=== PATIENT | male | born 1975 | race Caucasian/White ===

== ENCOUNTER 2017-03-04 19:40 | Emergency (ER) | payer SELFPAY ==
[2017-03-04 19:40] VITALS: BMI 28.1
[2017-03-04 20:07] VITALS: BP 121/84; PULSE 96; RESP 18; TEMP 97.9; O2SAT 96
[2017-03-04 22:15] LABS: RBC URINE 5 /hpf (0-3); URINE BACTERIA OCC (<OCC); URINE BILIRUBIN NEGATIVE (NEGATIVE); URINE BLOOD TRACE (NEGATIVE); URINE COLOR Yellow (YELLOW); URINE GLUCOSE (UA) NORMAL (Normal); URINE KETONE NEGATIVE (NEGATIVE); URINE LEUKOCYTE ESTERASE NEG Leu/uL (Negative); URINE PROTEIN NEGATIVE (NEGATIVE); URINE UROBILINOGEN NORMAL mg/dL (0.2-1.0); WBC URINE < 1 /hpf (0-5)
--- NOTE | 2017-03-04 22:41 | C.PDOC ---
History Of Present Illness Patient is a 41 y/o male who presents to the ED with a complaint of lower back pain for the past week. Patient states pain radiates to bilateral inguinal area , and worsens with movement. Patient denies nausea, vomiting, diarrhea, or UTI symptoms; denies fever, or trauma. No bladder or bowel incontinence. Patient has no other complaints at this time. Time Seen by Provider: 03/04/17 21:00 Chief Complaint (Nursing): Back Pain History Per: Patient History/Exam Limitations: no limitations Onset/Duration Of Symptoms: Days (symptoms began one week ago) Current Symptoms Are (Timing): Still Present Quality Of Discomfort: Other (radiates to lowe abdomen and inguinal area) Associated Symptoms: denies: Incontinence, New Weakness, New Numbness Exacerbating Factor(s): Movement Recent travel outside of the [place]: No Past Medical History Reviewed: Historical Data, Nursing Documentation, Vital Signs Vital Signs: Last Vital Signs Temp 97.9 F 03/04/17 20:06 Pulse 96 H 03/04/17 20:06 Resp 18 03/04/17 20:06 BP 121/84 03/04/17 20:06 Pulse Ox 96 03/05/17 05:33 - Medical History PMH: Asthma, Gastritis, HTN (not on meds) Surgical History: No Surg Hx Family History: States: Unknown Family Hx - Social History Hx Tobacco Use: No Hx Alcohol Use: No Hx Substance Use: No - Immunization History Hx Tetanus Toxoid Vaccination: No Hx Influenza Vaccination: No Hx Pneumococcal Vaccination: No Review Of Systems Constitutional: Negative for: Fever Gastrointestinal: Positive for: Other (no incontinence of bowel). Negative for : Nausea, Vomiting, Diarrhea Genitourinary: Negative for: Dysuria, Incontinence, Hematuria Musculoskeletal: Positive for: Back Pain (radiates to lower abdomen and inguinal areas) Neurological: Negative for: Weakness, Numbness Physical Exam - Physical Exam Appears: Well, Non-toxic, No Acute Distress Skin: Normal Color Eye(s): bilateral: Normal Inspection Oral Mucosa: Moist Gastrointestinal/Abdominal: Soft, No Tenderness (slight tenderness to R inguinal area), No Hernia Back: Normal Inspection, No CVA Tenderness, No Vertebral Tenderness, No Decreased ROM, Paraspinal Tenderness (bilateral paralumbar tenderness), No Straight Leg Raising Male Genital: No Testicular Tenderness, No Testicular Swelling, Inguinal Tenderness (slight tenderness to right inguinal area), No Scrotal Swelling, No Circumcised Neurological/Psych: Oriented x3, Normal Speech Gait: Steady ED Course And Treatment O2 Sat by Pulse Oximetry: 96 (room air) Pulse Ox Interpretation: Normal - Other Rad LS Spine X-Ray: Interpreted by Me, Viewed By Me Interpretation: no fractions, no findings. Progress Note: LS Spine XRay and UA ordered; results negative. Pt refused pain meds. Plan d/w pt and pt does agree with plan. Patient advised to follow up with PCP. Return precautions were discussed and understood Disposition Counseled Patient/Family Regarding: Studies Performed, Diagnosis, Need For Followup, Rx Given - Disposition Referrals: [facility] [Outside] Disposition: HOME/ ROUTINE Disposition Time: 22:38 Condition: STABLE Additional Instructions: Please follow up in clinic Take pain meds as directed Return to ER if worse Prescriptions: Cyclobenzaprine [Cyclobenzaprine HCl] 10 mg PO HS #10 tab Ibuprofen [Motrin] 600 mg PO Q6H #30 tab Instructions: Acute Low Back Pain (ED) Forms: [employer] ([place]orese) - Clinical Impression Clinical Impression: Low back pain - Scribe Statement The provider has reviewed the documentation as recorded by the Scribe Trini Griggs All medical record entries made by the Scribe were at my direction and personally dictated by me. I have reviewed the chart and agree that the record accurately reflects my personal performance of the history, physical exam, medical decision making, and the department course for this patient. I have also personally directed, reviewed, and agree with the discharge instructions and disposition.
--- NOTE | 2017-03-05 07:54 | RAD ---
PROCEDURE: Radiographs of the Lumbar Spine. HISTORY: back pain COMPARISON: No prior. FINDINGS: BONES: Normal alignment. No listhesis. No fracture. Superior L5 endplate Schmorl's node indentation DISC SPACES: Unremarkable. OTHER FINDINGS: None. IMPRESSION: L5 Schmorl's node indentation. Otherwise unremarkable
== END 2017-03-04 22:50 | disposition home or self-care (01) ==
LOC: C.ER 19:40
DX: M54.5 Low back pain (principal); I10 Essential (primary) hypertension

== ENCOUNTER 2017-03-09 22:20 | Emergency (ER) | payer SELFPAY ==
[2017-03-09 22:20] VITALS: BMI 28.1
[2017-03-09 22:30] VITALS: BP 136/86; PULSE 101; RESP 16; TEMP 98; O2SAT 98
--- NOTE | 2017-03-09 22:57 | C.PDOC ---
History Of Present Illness 41 yo male come in for evaluation of lower abdominal pain gradually developed for past 2 weeks. Pt reports, " was seen here week ago due to lower back pain and now pain shifted to lower abdomen", (+) discomfort on urination. Pt sts, " had similar sx in past when i was here and diagnosed with prostatitis then". Otherwise, pt denies fever, chills, sore throat, cough, N/V/D, hematuria, penile discharges or lesion, denies testicular pain or swelling. Ambulate to ED for evaluation, not in any apparent distress. Time Seen by Provider: 03/09/17 22:39 Chief Complaint (Nursing): Male Genitourinary History Per: Patient Past Medical History Reviewed: Historical Data, Nursing Documentation, Vital Signs Vital Signs: Last Vital Signs Temp 98.0 F 03/09/17 22:27 Pulse 101 H 03/09/17 22:27 Resp 16 03/09/17 22:27 BP 136/86 03/09/17 22:27 Pulse Ox 98 03/09/17 23:12 - Medical History PMH: Asthma, Gastritis, HTN (not on meds) Family History: States: No Known Family Hx - Social History Hx Tobacco Use: No Hx Alcohol Use: No Hx Substance Use: No - Immunization History Hx Tetanus Toxoid Vaccination: No Hx Influenza Vaccination: No Hx Pneumococcal Vaccination: No Review Of Systems Except As Marked, All Systems Reviewed And Found Negative. Constitutional: Negative for: Fever, Chills ENT: Negative for: Throat Pain, Throat Swelling Cardiovascular: Negative for: Chest Pain Respiratory: Negative for: Cough, Shortness of Breath, Wheezing Gastrointestinal: Positive for: Abdominal Pain. Negative for: Nausea, Vomiting , Diarrhea Genitourinary: Positive for: Dysuria. Negative for: Frequency, Incontinence, Hematuria, Penile Discharge, Rash, Penile Pain Musculoskeletal: Positive for: Back Pain. Negative for: Neck Pain Skin: Negative for: Rash Neurological: Negative for: Weakness, Numbness, Altered Mental Status, Dizziness Physical Exam - Physical Exam Appears: Well, Non-toxic, No Acute Distress Skin: Normal Color, Warm, No Rash Head: Normacephalic Eye(s): bilateral: PERRL Nose: No Discharge Oral Mucosa: Moist, No Drooling Throat: No Erythema Neck: Supple Cardiovascular: Rhythm Regular Respiratory: No Decreased Breath Sounds, No Accessory Muscle Use, No Stridor, No Wheezing Gastrointestinal/Abdominal: Soft, Tenderness (mild suprapubic), No Distention, No Guarding, No Rebound Back: No CVA Tenderness, No Vertebral Tenderness Male Genital: Other (refused) Extremity: No Tenderness, No Pedal Edema, No Deformity, No Swelling Neurological/Psych: Oriented x3, Normal Speech, Normal Motor, Normal Sensation, Normal Reflexes ED Course And Treatment O2 Sat by Pulse Oximetry: 98 - CT Scan/US CT abd/pelvis Other Rad Studies (CT/US): Radiology Report Reviewed CT/US Interpretation: EXAM: CT Abdomen and Pelvis Without Intravenous Contrast. CLINICAL HISTORY: 41 years old, male; Pain; Abdominal pain; Patient HX: 01-27-14 us abd; Additional info: Flank pain. TECHNIQUE: Axial computed tomography images of the abdomen and pelvis without intravenous contrast. All CT. scans at this facility use one or more dose reduction techniques, viz.: automated exposure control;. ma/kV adjustment per patient size (including targeted exams where dose is matched to indication; i.e. head); or iterative reconstruction technique. Coronal and sagittal reformatted images were created and reviewed. COMPARISON: US - ABDOMEN LIMITED 01/27/2014 2:25:58 AM. FINDINGS : Lower thorax: There is minimal bibasilar atelectasis. Tiny hiatal hernia. ABDOMEN: Liver: There is a diffuse decrease in hepatic parenchymal density, consistent with fatty infiltration. There are no focal liver lesions present. Gallbladder and bile ducts: The gallbladder is contracted but otherwise normal. No calcified stones. No ductal dilation. Pancreas: The pancreas is normal. No ductal dilation. Spleen: The spleen is normal. Adrenals: The adrenal glands are normal. Kidneys and ureters: The kidneys are normal. No obstructing stones. No hydronephrosis. Stomach and bowel: The stomach is normal. There is mild colonic constipation. There is no. evidence of intestinal obstruction. No mucosal thickening. Appendix: A normal appendix is identified. PELVIS: Bladder: Bladder is decompressed. No stones. Reproductive: The prostate gland and seminal vesicles are normal. ABDOMEN and PELVIS: Intraperitoneal space: There is no evidence of free intraperitoneal fluid. There is no free. intraperitoneal air. Bones/joints: No acute fracture. No dislocation. Soft tissues: Unremarkable. Vasculature: The aorta is normal. No abdominal aortic aneurysm. Lymph nodes: There is no evidence of lymphadenopathy. IMPRESSION: No acute findings. Thank you for allowing us to participate in the care of your patient. Dictated and Authenticated by: Satnam Howe M Progress Note: On re-evaluaion, pt is afebrile, hemodynamicaly stable. Non- toxic. Tolerate Po well in ED. ENT: no acute findings. Abd: benign, (-) guarding, (-) rebound, (-) localized tenderness. Back: (-) CVA tenderness. Neuorlogicaly intact. UA results review and appears normal. Imaging review, no findings of kidney stones. Pt ahs clinical findings c/w dysuria r/o urethritis, STD. Ucx, GS probe-pending. Pt request STD tx now. Pt advised on safe sex, encourage to get partner(s) to be evaluated and tx as need. Follow up with PMD, urology in 2-3 days for re-eavl. return if any new changes. Disposition Counseled Patient/Family Regarding: Studies Performed, Diagnosis, Need For Followup, Rx Given - Disposition Referrals: [facility] [Outside] Jacob Jiménez MD [Staff Provider] - Disposition: HOME/ ROUTINE Disposition Time: 00:07 Condition: STABLE Additional Instructions: Take medication as prescribed Practice safe sex, Consider sexual protection Follow up with PMD, Urology in 2-3 days for re-evaluation. Return to ED if any worsening or new changes. Prescriptions: Doxycycline Hyclate [Doryx] 100 mg PO BID #14 cap Instructions: Nonspecific Urethritis in Men (ED), Safe Sex (ED) Forms: [employer] (Chinese) Print Language: UZBEK - Clinical Impression Clinical Impression: Urethritis
[2017-03-09 23:07] LABS: RBC URINE 2 /hpf (0-3); URINE BILIRUBIN NEGATIVE (NEGATIVE); URINE COLOR Yellow (YELLOW); URINE GLUCOSE (UA) NORMAL (Normal); URINE KETONE NEGATIVE (NEGATIVE); URINE LEUKOCYTE ESTERASE NEG Leu/uL (Negative); URINE PROTEIN NEGATIVE (NEGATIVE); URINE UROBILINOGEN NORMAL mg/dL (0.2-1.0); WBC URINE 1 /hpf (0-5)
[2017-03-09 23:23] LABS: URINE BLOOD TRACE (NEGATIVE)
[2017-03-09] MEDS ORDERED: cefTRIAXone (Rocephin) 250 mg Inj IM STA (23:34)
--- NOTE | 2017-03-09 23:36 | CT ---
EXAM: CT Abdomen and Pelvis Without Intravenous Contrast CLINICAL HISTORY: 41 years old, male; Pain; Abdominal pain; Patient HX: 01-27-14 us abd; Additional info: Flank pain TECHNIQUE: Axial computed tomography images of the abdomen and pelvis without intravenous contrast. All CT scans at this facility use one or more dose reduction techniques, viz.: automated exposure control; ma/kV adjustment per patient size (including targeted exams where dose is matched to indication; i.e. head); or iterative reconstruction technique. Coronal and sagittal reformatted images were created and reviewed. COMPARISON: US - ABDOMEN LIMITED 01/27/2014 2:25:58 AM FINDINGS: Lower thorax: There is minimal bibasilar atelectasis. Tiny hiatal hernia. ABDOMEN: Liver: There is a diffuse decrease in hepatic parenchymal density, consistent with fatty infiltration. There are no focal liver lesions present. Gallbladder and bile ducts: The gallbladder is contracted but otherwise normal. No calcified stones. No ductal dilation. Pancreas: The pancreas is normal. No ductal dilation. Spleen: The spleen is normal. Adrenals: The adrenal glands are normal. Kidneys and ureters: The kidneys are normal. No obstructing stones. No hydronephrosis. Stomach and bowel: The stomach is normal. There is mild colonic constipation. There is no evidence of intestinal obstruction. No mucosal thickening. Appendix: A normal appendix is identified. PELVIS: Bladder: Bladder is decompressed. No stones. Reproductive: The prostate gland and seminal vesicles are normal. ABDOMEN and PELVIS: Intraperitoneal space: There is no evidence of free intraperitoneal fluid. There is no free intraperitoneal air. Bones/joints: No acute fracture. No dislocation. Soft tissues: Unremarkable. Vasculature: The aorta is normal. No abdominal aortic aneurysm. Lymph nodes: There is no evidence of lymphadenopathy. IMPRESSION: No acute findings.
== END 2017-03-10 00:25 | disposition home or self-care (01) ==
LOC: C.ER 22:20
DX: N34.2 Other urethritis (principal)
CPT/HCPCS: 74176; 81001; 87086; 87491; 87591; 96372; 99284; J0696

== ENCOUNTER 2017-08-29 22:29 | Emergency (ER) | payer SELFPAY ==
[2017-08-29 22:29] VITALS: BMI 28.1
--- NOTE | 2017-08-29 22:45 | C.PDOC ---
History Of Present Illness 41 year old male presents to the ED c/o nausea, vomit, abdominal pain that has been on and off for the past 2 days. Patient reports his pain has been worsening today, as well as decrease in PO. Patient denies diarrhea, constipation, fever, chills. Time Seen by Provider: 08/29/17 22:45 Chief Complaint (Nursing): Abdominal Pain History Per: Patient History/Exam Limitations: no limitations Onset/Duration Of Symptoms: Days Current Symptoms Are (Timing): Still Present Location Of Pain/Discomfort: RUQ, Epigastric Radiation Of Pain To:: None Quality Of Discomfort: "Pain" Associated Symptoms: Nausea, Vomiting, Loss Of Appetite. denies: Fever, Chills , Diarrhea, Constipation Exacerbating Factors: None Alleviating Factors: None Recent travel outside of the [place]: No Additional History Per: Patient Past Medical History Reviewed: Historical Data, Nursing Documentation, Vital Signs Vital Signs: Last Vital Signs Temp 98.4 F 08/29/17 22:34 Pulse 84 08/29/17 23:14 Resp 14 08/29/17 23:14 BP Pulse Ox 100 08/30/17 01:42 - Medical History PMH: Asthma, Gastritis, HTN (not on meds) Surgical History: No Surg Hx Family History: States: Unknown Family Hx - Social History Hx Tobacco Use: No Hx Alcohol Use: No Hx Substance Use: No - Immunization History Hx Tetanus Toxoid Vaccination: No Hx Influenza Vaccination: No Hx Pneumococcal Vaccination: No Review Of Systems Constitutional: Negative for: Fever, Chills Cardiovascular: Negative for: Chest Pain, Palpitations Respiratory: Negative for: Cough, Shortness of Breath Gastrointestinal: Positive for: Nausea, Vomiting, Abdominal Pain. Negative for : Diarrhea, Constipation Skin: Negative for: Rash Neurological: Negative for: Weakness, Numbness Physical Exam - Physical Exam Appears: Non-toxic, No Acute Distress Skin: Warm, Dry Head: Normacephalic Eye(s): bilateral: Normal Inspection Nose: No Discharge Oral Mucosa: Dry Neck: Supple Chest: Symmetrical Cardiovascular: Rhythm Regular, No Murmur Respiratory: No Rales, No Rhonchi, No Wheezing Gastrointestinal/Abdominal: Soft, Tenderness (mid epigastric and RUQ), Distention, No Guarding, No Rebound, Other (Tympanic to percussion) Extremity: Normal ROM Neurological/Psych: Oriented x3 Gait: Steady ED Course And Treatment - Laboratory Results Result Diagrams: 08/29/17 23:07 08/29/17 23:07 O2 Sat by Pulse Oximetry: 100 (On RA) Pulse Ox Interpretation: Normal - CT Scan/US CT abd/pelvis Other Rad Studies (CT/US): Read By Radiologist, Radiology Report Reviewed CT/US Interpretation: EXAM: CT Abdomen and Pelvis Without Intravenous Contrast. CLINICAL HISTORY: 41 years old, male; Pain; Abdominal pain; Epigastric; Additional info: Abd pain, hematuria. TECHNIQUE: Axial computed tomography images of the abdomen and pelvis without intravenous contrast. All CT. scans at this facility use one or more dose reduction techniques, viz.: automated exposure control;. ma/kV adjustment per patient size (including targeted exams where dose is matched to indication; i.e. head); or iterative reconstruction technique. 631 images are submitted.Sagittal and coronal MPR. reformatted images are submitted. COMPARISON: No relevant prior studies available. FINDINGS: Lung bases: There is bibasilar atelectasis. Mediastinum : Small hiatal hernia. ABDOMEN: Liver: Unremarkable. Gallbladder and bile ducts: Unremarkable. No ductal dilation. Pancreas: Unremarkable. No ductal dilation. Spleen: Unremarkable. No splenomegaly. Adrenals: Unremarkable. No mass. Kidneys and ureters: Unremarkable. No obstructing stones. No hydronephrosis. Stomach and bowel: There are nonspecific fluid filled stomach, small bowel loops. These findings. can represent ileus versus gastroenteritis/ enteritis versus slow transit versus peristalsis. There is. relative transition in the left mid abdomen seen on image 39 series 601 and on image 41 series 3. Correlation with clinical data is recommended if developing partial or early mid small bowel. obstruction is clinically suspected. Close clinical surveillance and correlation with patient's clinical. obstructive symptoms is recommended. Large amount of stool in the colon. Correlation with patient's. clinical history of constipation is recommended. Diverticulosis.Appendix: Normal appendix. PELVIS: Bladder: Bladder distention. Correlation with patient 's voiding status is recommended. Reproductive: Possible hydrocele. Enlarged prostate gland. ABDOMEN and PELVIS: Intraperitoneal space: Unremarkable. No free air. No significant fluid collection. Bones/joints: No acute fracture. No dislocation. Soft tissues: Bilateral inguinal herniation of fat. Vasculature: Unremarkable. No abdominal aortic aneurysm. Lymph nodes: Unremarkable. No enlarged lymph nodes. Other findings: Left upper quadrant calcification. IMPRESSION: 1. There are nonspecific fluid filled stomach, small bowel loops. These findings can represent ileus. versus gastroenteritis/enteritis versus slow transit versus peristalsis. There is relative transition in the. left mid abdomen seen on image 39 series 601 and on image 41 series 3. Correlation with clinical. data is recommended if developing partial or early mid small bowel obstruction is clinically suspected. Close clinical surveillance and correlation with patient's clinical obstructive symptoms is. recommended. Thank you for allowing us to participate in the care of your patient. Dictated and Authenticated by: Justin Solomon MD. 08/30/2017 1:40 AM Eastern Time ( [place] & [place]) Progress Note: Plan: - Labs. - Pepcid 20 mg IVP. - IV fluids. - Toradol 30 mg IVP. - Zofran 4 mg IVP. - UA Reevaluation Time: 02:02 Reassessment Condition: Improved Medical Decision Making Medical Decision Making: Upon provider reevaluation patient is feeling better, is medically stable, and requires no further treatment in the ED at this time. Patient will be discharged home with Rx for flagyl . Counseling was provided and all questions were answered regarding diagnosis and need for follow up with the referred clinic. There is agreement to discharge plan. Return if symptoms persist or worsen. Disposition Counseled Patient/Family Regarding: Studies Performed, Diagnosis, Need For Followup - Disposition Referrals: [facility] [Outside] [facility] [Outside] Disposition: HOME/ ROUTINE Disposition Time: 22:45 Condition: FAIR Additional Instructions: Please return if symptoms recur Prescriptions: Metronidazole [Flagyl] 500 mg PO TID #21 tablet Forms: [employer] (Kinyarwanda), General Discharge Instructions - Clinical Impression Clinical Impression: Abdominal pain, Ileus - Scribe Statement The provider has reviewed the documentation as recorded by the Scribe Bishnu Street All medical record entries made by the Scribe were at my direction and personally dictated by me. I have reviewed the chart and agree that the record accurately reflects my personal performance of the history, physical exam, medical decision making, and the department course for this patient. I have also personally directed, reviewed, and agree with the discharge instructions and disposition.
[2017-08-29] MEDS ORDERED: Sodium Chloride 0.9% 1,000 ML IV ONE (22:48)
[2017-08-29 23:10] LABS: BASO % 0.3 % (0.0-2.0); EOS % 0.1 % (0.0-4.0); HEMOGLOBIN 17.8 g/dL (12.0-18.0); LYMPH % 7.2 % (20.0-40.0); MEAN CORPUSCULAR HEMOGLOBIN 30.3 pg (27.0-31.0); MEAN CORPUSCULAR HGB CONC 34.5 g/dL (33.0-37.0); MONO # 0.5 K/uL (0.0-0.8); NEUT % 88.4 % (50.0-75.0); NRBC % 0.1 % (0.0-2.0); PLATELET COUNT 286 K/uL (130-400); RBC 5.87 Mil/uL (4.40-5.90); RED CELL DISTRIBUTION WIDTH 13.7 % (11.5-14.5); WHITE BLOOD COUNT 13.6 K/uL (4.8-10.8)
[2017-08-29] MEDS ORDERED: Sodium Chloride 0.9% 1,000 ML ONE (23:11)
[2017-08-29 23:14] LABS: MEAN CELL VOLUME 87.6 fL (80.0-94.0)
[2017-08-29 23:17] VITALS: RESP 14
[2017-08-29 23:20] LABS: URINE BILIRUBIN NEGATIVE (NEGATIVE); URINE BLOOD NEGATIVE (NEGATIVE); URINE CLARITY Hazy (Clear); URINE COLOR Yellow (YELLOW); URINE GLUCOSE (UA) NORMAL (Normal); URINE LEUKOCYTE ESTERASE NEG Leu/uL (Negative); URINE PROTEIN 1+ mg/dL (NEGATIVE); URINE UROBILINOGEN NORMAL mg/dL (0.2-1.0)
[2017-08-29 23:31] LABS: ALB/GLOB RATIO 1.1 (1.0-2.1); ALBUMIN 4.7 g/dL (3.5-5.0); ALT/SGPT 67 U/L (21-72); AST/SGOT 36 U/L (17-59); BLOOD UREA NITROGEN 14 mg/dL (9-20); CALCIUM 9.6 mg/dl (8.6-10.4); GFR AFRICAN-AMERICAN > 60; GFR NON-AFRICAN AMERICAN > 60; LIPASE 78 U/L (23-300)
[2017-08-30 00:14] LABS: LYMPHOCYTE 6 % (20-40); MONOCYTE 3 % (0-10); NEUTROPHIL 91 % (50-75); TOTAL CELLS COUNTED 100
[2017-08-30 00:15] LABS: PLATELET ESTIMATE NORMAL (NORMAL)
[2017-08-30 02:14] VITALS: BP 120/78; PULSE 80; TEMP 97.5; O2SAT 99
--- NOTE | 2017-08-30 13:35 | CT ---
PROCEDURE: CT scan abdomen pelvis dated 08/30/2017 HISTORY: Abdominal pain hematuria COMPARISON: Comparison made with prior CT scan abdomen pelvis 03/09/2017 TECHNIQUE: Contiguous helical/transaxial images of the abdomen and pelvis. Oral contrast was administered. No IV contrast given. Coronal and Sagittal reformats generated. Radiation dose: Total exam DLP = 555.49 mGy-cm This CT exam was performed using one or more of the following dose reduction techniques: Automated exposure control, adjustment of the mA and/or kV according to patient size, and/or use of iterative reconstruction technique. FINDINGS: LOWER THORAX: Mild atelectasis and or scarring changes both lung bases. No evidence of effusion or basilar pneumothorax. Small hiatal hernia. Heart size within range of normal. No significant pericardial effusion. LIVER: Unremarkable. No gross lesion or ductal dilatation. Liver is upper limits of normal measuring approximately 18.6 cm in CC dimension. GALLBLADDER AND BILE DUCTS: Gallbladder is physiologically distended. No evidence of intraluminal gallbladder calculi. PANCREAS: Unremarkable. No mass. No ductal dilatation. SPLEEN: Unremarkable. No splenomegaly. ADRENALS: Unremarkable. KIDNEYS AND URETERS: Unremarkable. No stone or hydronephrosis. BLADDER: Urinary bladder see exhibits slight wall thickening likely due to incomplete distention. Muscular hypertrophy may contribute. REPRODUCTIVE: Unremarkable. APPENDIX: Normal-appearing appendix best seen on axial image number [id number]. Small fat containing bilateral inguinal hernias. Tiny fat containing umbilical hernia. BOWEL: Evaluation of the bowel is limited due to the lack of oral contrast material. Stomach is distended with food debris liquid and air. There are several distended loops of small bowel in left upper and mid abdomen few which exhibit minimal wall thickening. Rule out gastroenteritis versus slow transit time Moderate amount stool seen throughout the large bowel consistent with fecal retention/constipation. Scattered colonic diverticula without radiographic evidence of acute diverticulitis. PERITONEUM: . No fluid collection. No free air. Punctate calcification left upper quadrant the abdomen nonspecific. LYMPH NODES: Unremarkable. No enlarged lymph nodes. VASCULATURE: Unremarkable. No aortic aneurysm. BONES: No fracture or destructive lesion. OTHER FINDINGS: None. IMPRESSION: Possible gastroenteritis. Clinical correlation recommended. Mild constipation. Diverticulosis some with no radiographic evidence of acute diverticulitis. Preliminary report provided by overnight radiology service.
== END 2017-08-30 02:13 | disposition home or self-care (01) ==
LOC: C.ER 22:29
DX: K56.7 Ileus, unspecified (principal); R10.9 Unspecified abdominal pain
CPT/HCPCS: 74176; 80053; 81001; 83690; 85025; 96374; 96375; 99283; J1885; J7040

== ENCOUNTER 2017-09-14 18:42 | Emergency (ER) | payer BC ==
[2017-09-14 18:42] VITALS: BMI 28.1
--- NOTE | 2017-09-14 22:42 | C.PDOC ---
History Of Present Illness 41 y/o male with no significant PMHx, presents to the ED for evaluation of dizziness. Patient states he woke up today with sudden onset of room-spinning, especially when turning his head or standing up. Denies any recent URI symptoms , ear ringing, ear pain, chest pain, or SOB. Patient states he had a similar episode years ago that resolved spontaneously. Denies recent head trauma. Time Seen by Provider: 09/14/17 21:58 Chief Complaint (Nursing): GI Problem History Per: Patient History/Exam Limitations: no limitations Onset/Duration Of Symptoms: Days (x1) Current Symptoms Are (Timing): Still Present Associated Symptoms Preceding Syncopal Episode: Vertigo Worse With Change In Head Position Past Medical History Reviewed: Historical Data, Nursing Documentation, Vital Signs Vital Signs: Last Vital Signs Temp 98.5 F 09/15/17 00:08 Pulse 77 09/15/17 00:08 Resp 18 09/15/17 00:08 BP 125/77 09/15/17 00:08 Pulse Ox 98 09/15/17 00:27 - Medical History PMH: Asthma, Gastritis, HTN (not on meds) Surgical History: No Surg Hx Family History: States: Unknown Family Hx - Social History Hx Tobacco Use: No Hx Alcohol Use: No Hx Substance Use: No - Immunization History Hx Tetanus Toxoid Vaccination: No Hx Influenza Vaccination: No Hx Pneumococcal Vaccination: No Review Of Systems Except As Marked, All Systems Reviewed And Found Negative. Constitutional: Negative for: Fever, Chills ENT: Negative for: Ear Pain Cardiovascular: Negative for: Chest Pain Respiratory: Negative for: Cough, Shortness of Breath Gastrointestinal: Negative for: Nausea, Vomiting Musculoskeletal: Negative for: Neck Pain Neurological: Positive for: Dizziness (room spinning). Negative for: Weakness, Numbness Physical Exam - Physical Exam Appears: Non-toxic, No Acute Distress Skin: Warm, Dry Head: Atraumatic, Normacephalic, No Tenderness, No Swelling Eye(s): bilateral: Normal Inspection, PERRL, EOMI Ear(s): Bilateral: Normal Nose: Normal Oral Mucosa: Moist Throat: Normal, No Erythema, No Exudate Neck: Normal ROM, Supple Cardiovascular: Rhythm Regular, Other (S1,S2 are wnl) Respiratory: Normal Breath Sounds, No Rales, No Rhonchi, No Wheezing Gastrointestinal/Abdominal: Soft, No Tenderness, No Distention Neurological/Psych: Oriented x3, Normal Speech, Normal Cranial Nerves, Normal Motor, Normal Sensation, Other (GCS of 15, (+) reproduction of symptoms on caty- hallpike maneuver, especially when turning head toward the right) Gait: Steady ED Course And Treatment O2 Sat by Pulse Oximetry: 98 (RA) Pulse Ox Interpretation: Normal Medical Decision Making Medical Decision Making: Initial Impression: Benign positional vertigo Time: 22:30 Plan: * Meclizine 25 mg PO * Reevaluation 23:27 On reevaluation, patient reports some improvement in room-spinning but is now complaining of numbness sensation around his head. Will order CT scan. Disposition - Disposition Referrals: [facility] [Outside] Disposition: HOME/ ROUTINE Disposition Time: 00:24 Condition: GOOD Prescriptions: Meclizine [Meclizine*] 25 mg PO Q6 #30 tab Instructions: Vertigo (a Type of Dizziness) Forms: [facility] ([place]) - Clinical Impression Clinical Impression: Vertigo - Scribe Statement The provider has reviewed the documentation as recorded by the Scribe (Mendy Servin) Provider Attestation: All medical record entries made by the Scribe were at my direction and personally dictated by me. I have reviewed the chart and agree that the record accurately reflects my personal performance of the history, physical exam, medical decision making, and the department course for this patient. I have also personally directed, reviewed, and agree with the discharge instructions and disposition.
[2017-09-14 22:47] VITALS: O2SAT 98
--- NOTE | 2017-09-14 23:58 | CT ---
EXAM: CT Head Without Intravenous Contrast CLINICAL HISTORY: 41 years old, male; Pain; Headache and other: Vertigo TECHNIQUE: Axial computed tomography images of the head/brain without intravenous contrast. All CT scans at this facility use one or more dose reduction techniques, viz.: automated exposure control; ma/kV adjustment per patient size (including targeted exams where dose is matched to indication; i.e. head); or iterative reconstruction technique. COMPARISON: No relevant prior studies available. FINDINGS: Brain: Minimal atrophy. No intracranial hemorrhage. No mass. No definite edema. Ventricles: No hydrocephalus. Bones/joints: No acute fracture. Chronic deformity medial wall of LEFT orbit. Soft tissues: Dermal calcifications. Sinuses: Scattered minimal mucosal thickening of ethmoid sinuses. Mastoid air cells: No mastoid effusion. Orbits: Unremarkable as visualized. IMPRESSION: 1. No definite acute intracranial abnormality. 2. Incidental/non-acute findings are described above.
[2017-09-15 00:09] VITALS: BP 125/77; PULSE 77; RESP 18; TEMP 98.5
== END 2017-09-15 00:35 | disposition home or self-care (01) ==
LOC: C.ER 18:42
DX: R42 Dizziness and giddiness (principal)

== ENCOUNTER 2018-01-04 20:02 | Emergency (ER) | payer SELFPAY ==
[2018-01-04 20:02] VITALS: BMI 28.1
[2018-01-04 20:12] VITALS: BP 127/82; PULSE 99; TEMP 98.6; O2SAT 97
[2018-01-04 20:40] LABS: URINE BILIRUBIN NEGATIVE (NEGATIVE); URINE BLOOD 1+ (NEGATIVE); URINE CLARITY Clear (Clear); URINE COLOR Yellow (YELLOW); URINE GLUCOSE (UA) NORMAL (Normal); URINE LEUKOCYTE ESTERASE NEG Leu/uL (Negative); URINE PROTEIN NEGATIVE (NEGATIVE); URINE UROBILINOGEN NORMAL mg/dL (0.2-1.0)
[2018-01-04] MEDS ORDERED: cefTRIAXone (Rocephin) 250 mg Inj IM STA (20:57)
--- NOTE | 2018-01-04 21:04 | C.PDOC ---
History Of Present Illness Patient complains of dysuria for 2 days after eating spicy burger. He states " feels similar when I was here and diagnosed with prostatitis ". Otherwise, pt denies fever, hematuria, penile discharge or lesion, denies testicular pain or swelling. Time Seen by Provider: 01/04/18 20:14 Chief Complaint (Nursing): Male Genitourinary History Per: Patient History/Exam Limitations: no limitations Onset/Duration Of Symptoms: Days Current Symptoms Are (Timing): Still Present Past Medical History Reviewed: Historical Data, Nursing Documentation, Vital Signs Vital Signs: Last Vital Signs Temp 98.6 F 01/04/18 20:09 Pulse 99 H 01/04/18 20:09 Resp 20 01/04/18 21:23 BP 127/82 01/04/18 20:09 Pulse Ox 97 01/04/18 21:25 - Medical History PMH: Asthma, Gastritis, HTN (not on meds) Surgical History: No Surg Hx Family History: States: No Known Family Hx - Social History Hx Tobacco Use: No Hx Alcohol Use: No Hx Substance Use: No - Immunization History Hx Tetanus Toxoid Vaccination: No Hx Influenza Vaccination: No Hx Pneumococcal Vaccination: No Review Of Systems Constitutional: Negative for: Fever, Chills Gastrointestinal: Negative for: Nausea, Vomiting, Abdominal Pain Genitourinary: Positive for: Dysuria. Negative for: Hematuria, Penile Discharge , Penile Pain Skin: Negative for: Rash Physical Exam - Physical Exam Appears: Non-toxic, No Acute Distress Skin: Warm, Dry, No Rash Head: Atraumatic, Normacephalic Eye(s): bilateral: Normal Inspection Oral Mucosa: Moist Neck: Normal ROM Chest: Symmetrical Cardiovascular: Rhythm Regular Respiratory: Normal Breath Sounds, No Rales, No Rhonchi, No Wheezing Gastrointestinal/Abdominal: Soft, No Tenderness, No Guarding, No Rebound Male Genital: No Testicular Tenderness, No Testicular Swelling, No Inguinal Tenderness, No Inguinal Swelling, No Scrotal Swelling, Circumcised Extremity: Bilateral: Atraumatic, Normal Color And Temperature, Normal ROM Neurological/Psych: Oriented x3, Normal Speech ED Course And Treatment O2 Sat by Pulse Oximetry: 97 (RA) Pulse Ox Interpretation: Normal Medical Decision Making Medical Decision Making: Impression: dysuria 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 Will treat with Rocephin and give Rx Disposition Counseled Patient/Family Regarding: Diagnosis, Need For Followup, Rx Given - Disposition Referrals: Huang Myo MD [Staff Provider] - Nasrin Estes MD [Staff Provider] - Disposition: HOME/ ROUTINE Disposition Time: 20:59 Condition: STABLE Additional Instructions: Vaya a gooden mdico o la clnica en 2-5 mcintosh sin falta, para mas evaluacin. Bassett los medicamentos rukhsana indicado. Volver a la mary de emergencia en cualquier momento si los sntomas persisten o empeoran. 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 - Scribe Statement The provider has reviewed the documentation as recorded by the Scribe Calin Kaplan All medical record entries made by the Scribe were at my direction and personally dictated by me. I have reviewed the chart and agree that the record accurately reflects my personal performance of the history, physical exam, medical decision making, and the department course for this patient. I have also personally directed, reviewed, and agree with the discharge instructions and disposition.
[2018-01-04 21:24] VITALS: RESP 20
== END 2018-01-04 21:23 | disposition home or self-care (01) ==
LOC: C.ER 20:02
DX: N34.2 Other urethritis (principal)
CPT/HCPCS: 81001; 87491; 87591; 96372; 99284; J0696

== ENCOUNTER 2018-09-20 23:15 | Emergency (ER) | payer SELFPAY | END 2018-09-21 00:46 | disposition home or self-care (01) | LOC: C.ER 23:15 | DX: N34.2 Other urethritis (principal) ==